=== PATIENT | male | born 1955 | race Caucasian/White ===

== ENCOUNTER 2019-01-17 10:06 | Outpatient (CLI) | payer BC ==
--- NOTE | 2019-01-17 11:18 | MRI ---
Lumbar spine MRI without contrast: 01/17/2019 COMPARISON: None HISTORY: Left leg pain, back pain, lumbar radiculopathy TECHNIQUE: Multiplanar multisequence MR imaging of the lumbar spine obtained without contrast FINDINGS: The sagittal STIR imaging demonstrates no focal area of osseous marrow edema. 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 Benign hemangiom a noted at the T12 level. On the basis of 5 lumbar type vertebral bodies, the conus medullaris terminates at the L1-2 level. T12-L1: Mild bilateral facet hypertrophy. Mild disc space narrowing. No significant central canal or neural foraminal stenosis. L1-2: Mild bilateral facet hypertrophy. Disc space narrowing, disc desiccation, vacuum disc formation , and disc bulge present with mild central canal stenosis. No significant neural foraminal stenosis. Anterior osteophyte formation noted. L2-3: Mild bilateral facet hypertrophy. Disc space narrowing, disc desiccation, and mild disc bulge. Mild central canal stenosis. No significant neural foraminal stenosis on either side. L3-4: There is disc desiccation and minimal disc bulge with no significant central canal stenosis. Th ere is bilateral facet hypertrophy with no significant neural foraminal stenosis noted on either side. L4-5: There is bilateral facet hypertrophy. No significant central canal or neural foraminal stenosis . L5-S1: Bilateral facet hypertrophy. No significant central canal or neural foraminal stenosis. The imaged retroperitoneal structures demonstrate no acute findings. IMPRESSION: Lumbar spine degenerative change as detailed above.
== END 2019-01-17 10:07 | disposition home or self-care (01) ==
LOC: TBSIIMAG 10:06
PROVIDERS: ATTEND Neurological Surgery
DX: M47.26 Other spondylosis with radiculopathy, lumbar region (principal)
CPT/HCPCS: 72148

== ENCOUNTER 2019-02-08 12:48 | Outpatient (CLI) | payer BC ==
--- NOTE | 2019-02-08 14:16 | CT ---
CT LUMBAR SPINE WITHOUT CONTRAST: Date: 02/08/19 Axial tomograms with multiplanar reconstructions. INDICATION: Lumbar radiculopathy. Left lower extremity radiculopathy. FINDINGS: Lumbar vertebra maintain height and alignment. There are degenerative disc changes at L1-2 with vacuu m phenomenon and loss of disc space. Mild degenerative osteophytes from all lumbar vertebra. The othe r lumbar disc spaces are preserved. At L1-2, degenerative disc changes as noted above. Mild diffuse disc bulge flattens the thecal sac. A symmetric bulge to the right extends into the right foramen. Mild facet hypertrophy. Mild central can al stenosis. Right foraminal encroachment due to the asymmetric disc bulge. At L2-3, broad based disc bulge flattens the thecal sac. Mild facet hypertrophy. Mild central canal s tenosis. At L3-4, broad based disc bulge. Facet hypertrophy. Posterior epidural fat is present. These changes result in mild to moderate central canal stenosis. At L4-5, broad based disc bulge flattens the thecal sac. Mild facet and ligamentous hypertrophy. Mild central canal stenosis. At L5-S1, mild disc bulge. Congenitally smaller thecal sac. There is facet hypertrophy; however, no s ignificant central canal stenosis. Mild foraminal encroachment due to the facet hypertrophy. The central canal stenosis at all levels is exacerbated by short pedicles in the lumbar spine. IMPRESSION: Degenerative disc changes are prominent at L1-2. Mild to moderate central canal stenosis at several l evels as described above. POS: [facility]
== END 2019-02-08 12:49 | disposition home or self-care (01) ==
LOC: TBSIIMAG 12:48
PROVIDERS: ATTEND Neurological Surgery
DX: M51.16 Intervertebral disc disorders with radiculopathy, lumbar region (principal); M48.061 Spinal stenosis, lumbar region without neurogenic claudication
CPT/HCPCS: 72131